=== PATIENT | male | born 1950 | race Caucasian/White ===

== ENCOUNTER 2018-02-18 07:05 | Emergency (ER) | payer BC ==
--- NOTE | 2018-02-18 07:45 | UC ---
Shortness of Breath HPI - HPI Summary HPI Summary: Patient presents to urgent care reporting progressive shortness of breath over the last 3 weeks. Patient states initially was just when he would lie down the sleepy would like he couldn't catch his breath and had a stand up and walk around. Patient states over the last 2-3 days it seems that he gets more short of breath with just general walking. It is a skin structure and states a couple times getting up on the ski lift he felt very winded. Patient has chest pain. No nausea vomiting. No extremity or abdominal edema. No headache or vision changes. No chest pain. Patient with cough but no production. Patient without history of similar. Patient is on no medications does not have a PCP. Patient states he took some [id number] decongestant but did not make a difference. Patient concerned because he is not sleeping as he feels that he can't catch his breath. Patient states when he sits and rests symptoms get better. Patient's medications reviewed as he is unknown other than the over-the -counter decongestant. - History of Current Complaint Stated Complaint: CHEST CONGESTION Time Seen by Provider: 02/18/18 07:44 Hx Obtained From: Patient - Allergy/Home Medications Allergies/Adverse Reactions: Allergies Allergy/AdvReac Type Severity Reaction Status Date / Time No Known Allergies Allergy Verified 02/18/18 07:42 Home Medications: Home Medications Pseudoephedrine HCL ER TAB* [Sudafed 12 Hour*] 120 mg PO BID PRN 02/18/18 [ History Confirmed 02/18/18] PMH/Surg Hx/FS Hx/Imm Hx Previously Healthy: Yes - Surgical History Surgical History: Yes Surgery Procedure, Year, and Place: broken bones - Family History Known Family History: Positive: Non-Contributory - Social History Occupation: Employed Part-time Alcohol Use: None Substance Use Type: None Review of Systems All Other Systems Reviewed And Are Negative: Yes Constitutional: Positive: Negative Skin: Positive: Negative Respiratory: Positive: Shortness Of Breath Physical Exam - Summary Physical Exam Summary: Vital Signs Reviewed: Yes A+Ox3, mild tachypnea with activity Eyes: Conjunctiva Clear, SUKH. EOM intact and full ENT: Hearing grossly normal TM x 2 clear, mmoist, uvula midline, no exudate, no erythema Neck: Positive: Supple Respiratory: Positive: No respiratory distress, No accessory muscle use, decreased breath sounds basis Cardiovascular: irregular abd soft + BS nt/nd no guarding, no distension Musculoskeletal Exam: MORSE x 4 without difficulty Strength Intact, ROM Intact Neurological: Positive: Alert, + sensation throughout Psychological: Positive: Normal Response To Family Skin: Positive: no rash, no ecchymosis Triage Information Reviewed: Yes Diagnostics - EKG Cardiac Rate: Other Rate - mild tachy Cardiac Rhythm: AFib: Normal ST Segment: Normal EKG Comparison: Other - none to compare Shortness of Breath Dx - Course Course Of Treatment: Patient presents with 2 weeks progressive shortness of breath when he lies flat at night. Patient states elected to 3 days has been worse during the day. Patient states walking he gets winded when he sits it improves. Patient with cough nonproductive. No chest pain. No nausea vomiting. No headache. No other complaints. Patient does not have a doctor and is on no medication. Patient states he just feels very tired because he is not sleeping related to feeling like he can't catch his breath. On exam patient vital signs reveal mild tachycardia. Patient's EKG shows atrial fibrillation. No old EKGs in the system. Patient states he's never been diagnosed with this before. Concern for congestive the heart failure related to A. fib. Recommend patient reemerged primary for further evaluation treatment. Patient comfortable in agreement with plan. Okay for patient go by private car. Patient requesting [facility]. Spoke to Dr. Gordon NP in the ED who is aware of patient - Differential Dx/Diagnosis Provider Diagnosis: ZIEGLER (dyspnea on exertion), New onset atrial fibrillation Discharge - Sign-Out/Discharge Documenting (check all that apply): Patient Departure All imaging exams completed and their final reports reviewed: No Studies - Discharge Plan Condition: Stable Disposition: HOME-RECOMMEND TO ED Patient Education Materials: A-fib (Atrial Fibrillation) (ED), Dyspnea (ED) Referrals: No Primary Care Phys,NOPCP [Primary Care Provider] - Additional Instructions: The doctor that evaluated you today thinks that you need additional testing that can be completed the emergency department. It is recommended that you go directly to emergency department for further evaluation. This evaluation may include blood work or imaging. This testing will be directed and decided by the provider that evaluate you at the emergency department. If pain becomes worse, you feel lightheaded, you have uncontrolled vomiting, or you have any other concerns while you are being driven to emergency department as recommended to pulljohny and contact 911. - Billing Disposition and Condition Condition: STABLE Disposition: Home-Recommend to ED
[2018-02-18 07:46] VITALS: BP 120/93
== END 2018-02-18 07:59 | disposition home health service (06) ==
LOC: UCCORT 07:05
DX: R06.00 Dyspnea, unspecified (principal); I48.91 Unspecified atrial fibrillation
CPT/HCPCS: 99202; G0463

== ENCOUNTER 2018-08-26 08:29 | Day surgery (SDC) | payer BC ==
[~2018-08-26 08:29] MED LIST: Buffered Lidocaine 1% SYRIN* 1 ML/SYRINGE INTRADERM ONE; Dexamethasone IV* 4 MG/ML 1 ML (4 MG) IV SLOW PU ONE; Famotidine IV* 10 MG/ML 2 ML (20 mg) IV ONE; Lactated Ringers 1000 ML Bag* 1,000 ML IV SCH
[2018-08-26] MEDS ORDERED: Famotidine IV* 10 MG/ML 2 ML (20 mg) ONE (09:21)
[2018-08-26] MEDS ORDERED: Dexamethasone IV* 4 MG/ML 1 ML (4 MG) ONE (09:21)
[2018-08-26] MEDS ORDERED: Lidocaine 2% PF * 5 ML VIAL ONE (09:55)
[2018-08-26] MEDS ORDERED: fentaNYL* 50 MCG/ML 2 ML VIAL (100 MCG VIAL) ONE (09:55)
[2018-08-26] MEDS ORDERED: Midazolam* 1 MG/ML 5 ML VIAL (5 MG) ONE (09:55)
[2018-08-26] MEDS ORDERED: Propofol* 10 MG/ML 20 ML BTL ONE (09:55)
[2018-08-26] MEDS ORDERED: Bupivacaine 0.25% SDV PF* 10 ML VIAL INJ ONE (11:10)
[2018-08-26] MEDS ORDERED: DiMENhydriNATE IV* 50 MG/ML VIAL IV PUSH PRN (11:39)
[2018-08-26] MEDS ORDERED: HYDROcodone/ACETAMIN 5-325 MG* 1 TAB PO PRN (11:39)
[2018-08-26] MEDS ORDERED: Naloxone* 0.4 MG/ML 1 ML VIAL IV PRN (11:39)
[2018-08-26] MEDS ORDERED: Ibuprofen TAB* 600 MG PO PRN (11:39)
[2018-08-26] MEDS ORDERED: Acetaminophen TAB* 325 MG PO PRN (11:39)
[2018-08-26] MEDS ORDERED: oxyCODONE/Acetamin 5/325 MG* TAB PO PRN (11:39)
[2018-08-26] MEDS ORDERED: fentaNYL* 50 MCG/ML 2 ML VIAL (100 MCG VIAL) IV PRN (11:39)
[2018-08-26] MEDS ORDERED: EPHEDrine (Pressors)* 50 MG/ML VIAL ONE (12:40)
--- NOTE | 2018-08-26 14:32 | OP ---
DATE OF OPERATION: 08/26/18 - [facility] DATE OF : 52 SURGEON: Peter Lopes MD HOME CARE PHYSICAL THERAPIST: YASHIRA Mclean ANESTHESIOLOGIST: Dr. Watkins. ANESTHESIA: Local MAC. PRE-OP DIAGNOSIS: Right carpal tunnel syndrome. POST-OP DIAGNOSIS: Right carpal tunnel syndrome. OPERATIVE PROCEDURE: Right open carpal tunnel release. INDICATIONS: Ubaldo has pretty significant carpal tunnel syndrome. We had talked about risks and benefits. He wanted to proceed with a carpal tunnel release. ESTIMATED BLOOD LOSS: 2 mL. COMPLICATIONS: None. FINDINGS: See above and below. DESCRIPTION OF PROCEDURE: Ubaldo was seen in the preoperative holding area. The correct site, side, and procedure were identified. We came back to the operating room where I infiltrated the operative area with 0.25% plain Marcaine. The arm was then prepped and draped in the usual fashion and a time- out was performed. The arm was exsanguinated with the Esmarch and the tourniquet was inflated to 250 mmHg. I made a 2 to 3 cm incision in the proximal palm in the typical location for an open carpal tunnel release. Dissection was carried down through the subcutaneous tissue and palmar fascia. The self-retaining retractor was applied. The release was completed from distal to proximal by releasing the transverse carpal ligament just off the radial aspect of the hook of the hamate. Once I had completed the release distally, I released the fascia and subcutaneous tissue proximally and placed a Krystyna retractor and then utilized the tenotomy scissors to release the remainder of the transverse carpal ligament and distal antebrachial fascia to a level several centimeters proximal to the wrist flexion crease. The wound was irrigated out. The skin was closed with 4-0 nylon suture. A soft dressing was applied and he was taken to the recovery room in stable condition. [id number]/[facility] #: [id number] [facility] NETWORK[facility]un[facility]
[2018-08-26 14:42] VITALS: BP 113/71
== END 2018-08-26 14:43 | disposition home or self-care (01) ==
LOC: OR 08:29
PROVIDERS: ATTEND Orthopaedic Surgery Hand Surgery
DX: G56.01 Carpal tunnel syndrome, right upper limb (principal); I48.91 Unspecified atrial fibrillation; G47.33 Obstructive sleep apnea (adult) (pediatric); Z79.01 Long term (current) use of anticoagulants
CPT/HCPCS: J1100; J2250; J2704; J3010; J3490

== ENCOUNTER 2018-09-16 05:34 | Day surgery (SDC) | payer BC ==
[~2018-09-16 05:34] MED LIST changes: -Dexamethasone IV* 4 MG/ML 1 ML (4 MG) IV SLOW PU ONE; -Famotidine IV* 10 MG/ML 2 ML (20 mg) IV ONE; -Lactated Ringers 1000 ML Bag* 1,000 ML IV SCH
[2018-09-16] MEDS ORDERED: Lactated Ringers 1000 ML Bag* 1,000 ML IV SCH (06:00)
[2018-09-16] MEDS ORDERED: Buffered Lidocaine 1% SYRIN* 1 ML/SYRINGE INTRADERM ONE (06:02)
[2018-09-16] MEDS ORDERED: fentaNYL* 50 MCG/ML 2 ML VIAL (100 MCG VIAL) ONE (07:07)
[2018-09-16] MEDS ORDERED: Midazolam* 1 MG/ML 2 ML VIAL (2 MG) ONE (07:07)
[2018-09-16] MEDS ORDERED: Bupivacaine 0.25% SDV PF* 10 ML VIAL INJ ONE (07:09)
[2018-09-16] MEDS ORDERED: Propofol* 10 MG/ML 20 ML BTL ONE (07:41)
[2018-09-16] MEDS ORDERED: Lidocaine 2% PF * 5 ML VIAL ONE (07:42)
[2018-09-16] MEDS ORDERED: Acetaminophen TAB* 325 MG PO PRN (07:53)
[2018-09-16] MEDS ORDERED: DiMENhydriNATE IV* 50 MG/ML VIAL IV PUSH PRN (07:53)
[2018-09-16] MEDS ORDERED: HYDROcodone/ACETAMIN 5-325 MG* 1 TAB PO PRN (07:53)
[2018-09-16] MEDS ORDERED: Naloxone* 0.4 MG/ML 1 ML VIAL IV PRN (07:53)
[2018-09-16] MEDS ORDERED: Ondansetron INJ* 2 MG/ML VIAL IV PRN (07:53)
[2018-09-16 08:34] VITALS: BP 114/71
--- NOTE | 2018-09-16 14:20 | OP ---
OPERATIVE REPORT: DATE OF OPERATION: 09/16/18 DATE OF : 52 SURGEON: Peter Lopes MD INTEL ANALYST: YASHIRA Kumar ANESTHESIOLOGIST: Dr. Mayfield. ANESTHESIA: Local MAC. PRE-OP DIAGNOSIS: Left carpal tunnel syndrome. POST-OP DIAGNOSIS: Left carpal tunnel syndrome. OPERATIVE PROCEDURE: Left open carpal tunnel release. INDICATIONS: Ubaldo has carpal tunnel syndrome, we had done the right, he is here and presents to do t he left. He understands the risks and benefits. ESTIMATED BLOOD LOSS: 2 mL. COMPLICATIONS: None. FINDINGS: See above and below. DESCRIPTION OF PROCEDURE: Ubadlo was seen in the preoperative holding area. The correct site, side, a nd procedure were identified. We came back to the operating room where the arm was prepped and drape d in the usual fashion and a time-out was performed. I made a 2 to 3 cm longitudinal incision in the proximal palm. Dissection was carried down through t he subcutaneous tissue and palmar fascia. The transverse carpal ligament was released just off the r adial aspect of the hook of the hamate. The release was completed distally and then proximally, I rel eased the subcutaneous tissue and palmar fascia and that was retracted out of the way with a Krystyna ret ractor. I then released the remainder of the distal antebrachial fascia and transverse carpal ligame nt with tenotomy scissors under direct visualization. At this point, the release was complete. It w as looking very good. We irrigated out the wound. Skin was closed with 4-0 nylon suture. Soft dres sing was applied and he was taken to the recovery room in stable condition. [id number]/[facility] #: [id number]
== END 2018-09-16 09:19 | disposition home or self-care (01) ==
LOC: OR 05:34
PROVIDERS: ATTEND Orthopaedic Surgery Hand Surgery
DX: G56.02 Carpal tunnel syndrome, left upper limb (principal); I48.91 Unspecified atrial fibrillation; Z79.01 Long term (current) use of anticoagulants; G47.33 Obstructive sleep apnea (adult) (pediatric); E66.01 Morbid (severe) obesity due to excess calories; Z68.38 Body mass index [BMI] 38.0-38.9, adult
CPT/HCPCS: J2250; J2704; J3010; J3490